=== PATIENT | male | born 2000 | race Caucasian/White ===

== ENCOUNTER 2019-04-02 16:27 | Emergency (ER) | payer SELFPAY ==
[2019-04-02] MEDS ORDERED: Sodium Chloride 0.9% 1,000 ML IV ONE ×2 (16:59→17:00)
[2019-04-02] MEDS ORDERED: Ondansetron 4 MG/2 ML SDV IVPUSH ONE (17:00)
[2019-04-02] MEDS ORDERED: Pantoprazole 80 MG in Sodium Chloride 0.9% 20 ML IVPUSH ONE (17:00)
--- NOTE | 2019-04-02 17:09 | EDM.PDOC ---
ED HPI GENERAL MEDICAL PROBLEM - General Chief Complaint: Abdominal Pain Stated Complaint: VOMITTING, DEHYDRATION Time Seen by Provider: 04/02/19 17:08 Source of Information: Reports: Patient - History of Present Illness INITIAL COMMENTS - FREE TEXT/NARRATIVE: HISTORY AND PHYSICAL: History of present illness: [pt presents with nausea/ vomiting since 4 am, general malaise and abdominal pain 410 with subjective fever, cough, patient states that he has vomited blood , no further vomiting here in the er patient is stable, abdominal pain resolved no current f/n/v/c/s/cp/sob/villasenor/d/palp ] Review of systems: As per history of present illness and below otherwise all systems reviewed and negative. Past medical history: As per history of present illness and as reviewed below otherwise noncontributory. Surgical history: As per history of present illness and as reviewed below otherwise noncontributory. Social history: No reported history of drug or alcohol abuse. Family history: As per history of present illness and as reviewed below otherwise noncontributory. Physical exam: HEENT: Atraumatic, normocephalic, pupils reactive, negative for conjunctival pallor or scleral icterus, mucous membranes moist, throat clear, neck supple, nontender, trachea midline. Lungs: Clear to auscultation, breath sounds equal bilaterally, chest nontender. Heart: S1S2, regular, negative for clicks, rubs, or JVD. Abdomen: Soft, nondistended, nontender. Negative for masses or hepatosplenomegaly. Negative for costovertebral tenderness. Pelvis: Stable nontender. Genitourinary: Deferred. Rectal: Deferred. Extremities: Atraumatic, negative for cords or calf pain. Neurovascular unremarkable. Neuro: Awake, alert, oriented. Cranial nerves II through XII unremarkable. Cerebellum unremarkable. Motor and sensory unremarkable throughout. Exam nonfocal. Diagnostics: [cbc, cmp, ua, lip chest 1 v abd/pelvis ct wo ] Therapeutics: []ns protonix zofran Impression: influenza a [cough abd pain-resolved vomiting-0resolved ] Definitive disposition and diagnosis as appropriate pending reevaluation and review of above. Abdominal Pain Score (Numeric/FACES): 8 - Related Data Allergies Allergy/AdvReac Type Severity Reaction Status Date / Time No Known Allergies Allergy Verified 04/02/19 16:45 Home Meds: Home Meds . [No Known Home Meds] 04/02/19 [History] Past Medical History Musculoskeletal History: Reports: Fracture - Infectious Disease History Infectious Disease History: Reports: None Social & Family History - Family History Family Medical History: Noncontributory - Tobacco Use Smoking Status *Q: Never Smoker Second Hand Smoke Exposure: No - Caffeine Use Caffeine Use: Reports: Coffee - Recreational Drug Use Recreational Drug Use: No ED ROS GENERAL - Review of Systems Review Of Systems: See Below ED EXAM, GENERAL - Physical Exam Exam: See Below Course - Vital Signs Last Recorded V/S: Last Vital Signs Temp 97.1 F 04/02/19 16:52 Pulse 102 H 04/02/19 16:52 Resp 20 04/02/19 16:52 BP 124/74 04/02/19 16:52 Pulse Ox 94 L 04/02/19 16:52 - Orders/Labs/Meds Orders: Active Orders 24 hr Category Date Time Status Abdomen Pelvis w Cont [CT] Stat Exams 04/02/19 17:00 Taken Labs: Laboratory Tests 04/02/19 04/02/19 Range/Units 17:02 17:02 WBC 5.19 (4.0-11.0) K/uL RBC 4.92 (4.50-5.90) M/uL Hgb 15.5 (13.0-17.0) g/dL Hct 44.7 (38.0-50.0) % MCV 90.9 (80.0-98.0) fL MCH 31.5 (27.0-32.0) pg MCHC 34.7 (31.0-37.0) g/dL RDW Std Deviation 43.0 (28.0-62.0) fl RDW Coeff of Minnie 13 (11.0-15.0) % Plt Count 251 (150-400) K/uL MPV 10.20 (7.40-12.00) fL Neut % (Auto) 73.5 (48.0-80.0) % Lymph % (Auto) 11.2 L (16.0-40.0) % Glasscock % (Auto) 13.9 (0.0-15.0) % Eos % (Auto) 1.0 (0.0-7.0) % Baso % (Auto) 0.4 (0.0-1.5) % Neut # (Auto) 3.8 (1.4-5.7) K/uL Lymph # (Auto) 0.6 (0.6-2.4) K/uL Glasscock # (Auto) 0.7 (0.0-0.8) K/uL Eos # (Auto) 0.1 (0.0-0.7) K/uL Baso # (Auto) 0.0 (0.0-0.1) K/uL Nucleated RBC % 0.0 /100WBC Nucleated RBCs # 0 K/uL Sodium 142 (136-148) mmol/L Potassium 3.8 (3.5-5.1) mmol/L Chloride 106 (98-107) mmol/L Carbon Dioxide 26.1 (21.0-32.0) mmol/L BUN 20 H (7.0-18.0) mg/dL Creatinine 1.3 (0.8-1.3) mg/dL Est Cr Clr Drug Dosing 99.49 mL/min Estimated GFR (MDRD) > 60.0 ml/min Glucose 104 (74-106) mg/dL Calcium 8.7 (8.5-10.1) mg/dL Total Bilirubin 0.7 (0.2-1.0) mg/dL AST 38 H (15-37) IU/L ALT 78 H (14-63) IU/L Alkaline Phosphatase 64 (46-116) U/L Total Protein 7.8 (6.4-8.2) g/dL Albumin 4.2 (3.4-5.0) g/dL Globulin 3.6 (2.6-4.0) g/dL Albumin/Globulin Ratio 1.2 (0.9-1.6) Lipase 232 (73-393) U/L Meds: Medications Discontinued Medications Generic Name Dose Route Start Last Admin Trade Name Freq PRN Reason Stop Dose Admin Sodium Chloride 1,000 mls @ 999 mls/hr 04/02/19 16:59 04/02/19 17:12 Normal Saline IV 04/02/19 17:59 999 mls/hr STAT ONE Administration Pantoprazole Sodium 80 mg/ 20 mls @ 420 mls/hr 04/02/19 17:00 04/02/19 17:13 Sodium Chloride IVPUSH 04/02/19 17:02 420 mls/hr ONETIME ONE Administration Sodium Chloride 1,000 mls @ 999 mls/hr 04/02/19 17:00 04/02/19 17:14 Normal Saline IV 04/02/19 18:00 Not Given STAT ONE Ondansetron HCl 8 mg 04/02/19 17:00 04/02/19 17:12 Zofran IVPUSH 04/02/19 17:01 8 mg ONETIME ONE Administration Departure - Departure Time of Disposition: 18:51 Disposition: Home, Self-Care 01 Condition: Good Clinical Impression: Influenza A, Vomiting - Discharge Information Referrals: PCP,None [Primary Care Provider] - Forms: ED Department Discharge Additional Instructions: Tamiflu Zofran Fluids nutrition Return if symptoms persist or worsen Follow-up with primary care in 2 [address] as [address] [facility] - Primary Care [address] [place] [id number] The following information is given to patients seen in the emergency department who are being discharged to home. This information is to outline your options for follow-up care. We provide all patients seen in our emergency department with a follow-up referral. The need for follow-up, as well as the timing and circumstances, are variable depending upon the specifics of your emergency department visit. If you don't have a primary care physician on staff, we will provide you with a referral. We always advise you to contact your personal physician following an emergency department visit to inform them of the circumstance of the visit and for follow-up with them and/or the need for any referrals to a consulting specialist. The emergency department will also refer you to a specialist when appropriate. This referral assures that you have the opportunity for follow-up care with a specialist. All of these measure are taken in an effort to provide you with optimal care, which includes your follow-up. Under all circumstances we always encourage you to contact your private physician who remains a resource for coordinating your care. When calling for follow-up care, please make the office aware that this follow-up is from your recent emergency room visit. If for any reason you are refused follow-up, please contact the [facility] emergency department at and asked to speak to the emergency department charge nurse. Sepsis Event Note - Evaluation Sepsis Screening Result: No Definite Risk - Focused Exam Vital Signs: Vital Signs Temp Pulse Resp BP Pulse Ox 04/02/19 16:52 97.1 F 102 H 20 124/74 94 L Date Exam was Performed: 04/02/19 Time Exam was Performed: 18:50 - My Orders Last 24 Hours: My Active Orders 04/02/19 17:00 Abdomen Pelvis w Cont [CT] Stat - Assessment/Plan Last 24 Hours: My Active Orders 04/02/19 17:00 Abdomen Pelvis w Cont [CT] Stat
[2019-04-02 17:43] LABS: BLOOD UREA NITROGEN,BUN 20 mg/dL (7.0-18.0); CARBON DIOXIDE,CO2 26.1 mmol/L (21.0-32.0); CHLORIDE,CL 106 mmol/L (98-107); GLUCOSE RANDOM 104 mg/dL (74-106); LIPASE 232 U/L (73-393); POTASSIUM,K 3.8 mmol/L (3.5-5.1); SODIUM,NA 142 mmol/L (136-148)
--- NOTE | 2019-04-02 18:24 | CR ---
INDICATION: Cough, nausea TECHNIQUE: Chest 1 view. COMPARISON: None FINDINGS: The heart is normal in size given AP technique. The pulmonary vasculature is within normal limits. The lungs are clear without focal consolidation, pleural effusion or pneumothorax. The bones are unremarkable. IMPRESSION: No acute process. Dictated by Ny Liu MD @ 04/02/2019 6:22:15 PM Dictated by: Ny Liu MD @ 04/02/2019 18:22:25 (Electronically Signed)
--- NOTE | 2019-04-02 18:52 | CT ---
INDICATION: Abdominal pain. Vomiting. Fever. TECHNIQUE: CT of the abdomen and pelvis performed after IV injection of 100 mL of Isovue-370. FINDINGS: Mild hazy opacity in the lung bases likely predominantly related atelectasis. Moderate diffuse fatty infiltration of liver. Clusters of small to slightly prominent right lower quadrant and right pelvic mesenteric lymph nodes are increased in number and measure up to 1.3 cm. These lymph nodes are likely inflammatory reactive in nature. The appendix is normal. Remainder negative. IMPRESSION: 1. No acute disease in abdomen or pelvis. 2. Clusters of increased number of small to mildly prominent right lower quadrant and pelvic mesentery are likely inflammatory or reactive in nature. Please note that all CT scans at this facility use dose modulation, iterative reconstruction, and/or weight-based dosing when appropriate to reduce radiation dose to as low as reasonably achievable. Dictated by Celestino Bai MD @ Apr 02 2019 6:50PM Signed by Dr. Celestino Bai @ Apr 02 2019 6:50PM
[2019-04-02] MEDS ORDERED: Iopamidol 755 Mg/ML 100 ML Bottle IVPUSH STA (19:00)
== END 2019-04-02 21:13 | disposition home or self-care (01) ==
LOC: MW.ED 16:27
DX: J10.1 Influenza due to other identified influenza virus with other respiratory manifestations (principal)
CPT/HCPCS: 36415; 71045; 74177; 80053; 83690; 85025; 87804; 96361; 96374; 96375; 99284; C9113; J2405; J7030; Q9967

== ENCOUNTER 2019-12-08 08:12 | Emergency (ER) | payer OTHER ==
--- NOTE | 2019-12-08 08:30 | EDM.PDOC ---
ED HPI GENERAL MEDICAL PROBLEM - General Chief Complaint: Back Pain or Injury Stated Complaint: BACK INJURY Time Seen by Provider: 12/08/19 08:17 - History of Present Illness INITIAL COMMENTS - FREE TEXT/NARRATIVE: History of present illness: Presents with midthoracic back pain that began this morning while he was walking across the street he says he felt the sudden onset of pain in the right mid back no radiation there was no lifting no injuries no falls no fever he feels like he just pulled a muscle and it spasming. The patient denies any flank pain no abdominal pain there is been no difficulty urinating no fevers no chills movement makes it worse being still makes it better he did not take any medications. Review of systems: As per history of present illness and below otherwise all systems reviewed and negative. Past medical history: As per history of present illness and as reviewed below otherwise noncontributory. Surgical history: As per history of present illness and as reviewed below otherwise noncont ributory. Social history: No reported history of drug or alcohol abuse. Family history: As per history of present illness and as reviewed below otherwise noncontributory. Physical exam: HEENT: Atraumatic, normocephalic, pupils reactive, negative for conjunctival pallor or scleral icterus, mucous membranes moist, throat clear, neck supple, nontender, trachea midline. Lungs: Clear to auscultation, breath sounds equal bilaterally, chest nontender. Heart: S1S2, regular, negative for clicks, rubs, or JVD. Abdomen: Soft, nondistended, nontender. Negative for masses or hepatosplenomegaly. Negative for costovertebral tenderness. Pelvis: Stable nontender. Genitourinary: Deferred. Rectal: Deferred. Extremities: Atraumatic, negative for cords or calf pain. Neurovascular unremarkable. Neuro: Awake, alert, oriented. Cranial nerves II through XII unremarkable. Cerebellum unremarkable. Motor and sensory unremarkable throughout. Exam nonfocal. There is no saddle anesthesia great toe strength 5 out of 5 Back: There is no midline tenderness throughout any level of the spine. He does have paraspinal spasm and tenderness at the level of T5 and 6. Diagnostics: [] Therapeutics: [] Impression: Thoracic strain Plan: Melony Majano work note discharged home follow-up with primary care [] Definitive disposition and diagnosis as appropriate pending reevaluation and review of above. - Related Data Allergies Allergy/AdvReac Type Severity Reaction Status Date / Time No Known Allergies Allergy Verified 12/08/19 08:32 Home Meds: Home Meds . [No Known Home Meds] 04/02/19 [History] Past Medical History Musculoskeletal History: Reports: Fracture - Infectious Disease History Infectious Disease History: Reports: None Social & Family History - Family History Family Medical History: Noncontributory - Caffeine Use Caffeine Use: Reports: Coffee ED ROS GENERAL - Review of Systems Review Of Systems: See Below ED EXAM, GENERAL - Physical Exam Exam: See Below Course - Vital Signs Last Recorded V/S: Last Vital Signs Temp 36.1 C 12/08/19 08:32 Pulse 70 12/08/19 08:32 Resp 16 12/08/19 08:32 BP 130/90 12/08/19 08:32 Pulse Ox 98 12/08/19 08:32 - Orders/Labs/Meds Orders: Active Orders 24 hr Category Date Time Status Cyclobenzaprine [Flexeril] Med 12/08/19 08:37 Once 10 mg PO ONETIME ONE Ibuprofen [Motrin] Med 12/08/19 08:37 Once 800 mg PO ONETIME ONE Departure - Departure Time of Disposition: 08:37 Disposition: Home, Self-Care 01 Condition: Good Clinical Impression: Back pain - Discharge Information *PRESCRIPTION DRUG MONITORING PROGRAM REVIEWED*: Not Applicable *COPY OF PRESCRIPTION DRUG MONITORING REPORT IN PATIENT VILLA: Not Applicable Instructions: Muscle Strain, [id number], Acute Back Pain, Adult Referrals: PCP,None [Primary Care Provider] - Forms: ED Department Discharge Additional Instructions: The following information is given to patients seen in the emergency department who are being discharged to home. This information is to outline your options for follow-up care. We provide all patients seen in our emergency department with a follow-up referral. The need for follow-up, as well as the timing and circumstances, are variable depending upon the specifics of your emergency department visit. If you don't have a primary care physician on staff, we will provide you with a referral. We always advise you to contact your personal physician following an emergency department visit to inform them of the circumstance of the visit and for follow-up with them and/or the need for any referrals to a consulting specialist. The emergency department will also refer you to a specialist when appropriate. This referral assures that you have the opportunity for follow-up care with a specialist. All of these measure are taken in an effort to provide you with optimal care, which includes your follow-up. Under all circumstances we always encourage you to contact your private physician who remains a resource for coordinating your care. When calling for follow-up care, please make the office aware that this follow-up is from your recent emergency room visit. If for any reason you are refused follow-up, please contact the [facility] Emergency Department at and asked to speak to the emergency department charge nurse. [facility] - Primary Care [address] [place] [id number] [facility] [address] [place] [id number] Sepsis Event Note (ED) - Focused Exam Vital Signs: Vital Signs Temp Pulse Resp BP Pulse Ox 12/08/19 08:32 36.1 C 70 16 130/90 98 - My Orders Last 24 Hours: My Active Orders 12/08/19 08:37 Cyclobenzaprine [Flexeril] 10 mg PO ONETIME ONE Ibuprofen [Motrin] 800 mg PO ONETIME ONE - Assessment/Plan Last 24 Hours: My Active Orders 12/08/19 08:37 Cyclobenzaprine [Flexeril] 10 mg PO ONETIME ONE Ibuprofen [Motrin] 800 mg PO ONETIME ONE
[2019-12-08] MEDS ORDERED: Cyclobenzaprine 10 MG Tab PO ONE (08:37)
[2019-12-08] MEDS ORDERED: Ibuprofen 800 MG Tab PO ONE (08:37)
== END 2019-12-08 08:59 | disposition home or self-care (01) ==
LOC: MW.ED 08:12
DX: M54.6 Pain in thoracic spine (principal)
CPT/HCPCS: 99283; A9270

== ENCOUNTER 2020-12-29 15:06 | Emergency (ER) | payer BC, OTHER ==
[2020-12-29] MEDS ORDERED: Sodium Chloride 0.9% 1,000 ML IV ONE (17:09)
[2020-12-29] MEDS ORDERED: Sodium Chloride 0.9% 2.5 ML Syringe FLUSH PRN (17:09)
[2020-12-29] MEDS ORDERED: Sodium Chloride 0.9% 10 ML Syringe FLUSH PRN (17:09)
[2020-12-29] MEDS ORDERED: Diphtheria,Pertussis(Acell),Tetanus Vaccine 0.5 ML Syringe IM ONE (17:09)
--- NOTE | 2020-12-29 17:10 | EDM.PDOC ---
ED HPI GENERAL MEDICAL PROBLEM - General Chief Complaint: Laceration Stated Complaint: RT HAND LACERATION/HEAD INJURY Time Seen by Provider: 12/29/20 16:51 Source of Information: Reports: Patient History Limitations: Reports: No Limitations - History of Present Illness INITIAL COMMENTS - FREE TEXT/NARRATIVE: HISTORY AND PHYSICAL: History of present illness: The patient is a 20-year-old male who presents to the emergency room for a right thenar eminence laceration. Patient was work after cutting his and and had a syncopal episode. Upon arriving to the emergency department waiting area the patient had another syncopal episode. The patient quickly regained consciousness and was able to answer questions appropriately. The patient states that he was handed tying a andres wire fence and he sliced his right hand palmar side. He states that he had never had difficulty with blood before but upon seeing the bleeding became nauseated and lightheaded and then fainted. Patient's states that he did strike his head when he was in the waiting room. Patient denies any fever, chills, headache, change in vision. Denies any chest pain, back pain, shortness of breath or cough. Denies any abdominal pain, nausea, vomiting, diarrhea, constipation or dysuria. Has not noted any blood in urine or stool. Patient has been eating and drinking appropriately. Review of systems: As per history of present illness and below otherwise all systems reviewed and negative. Past medical history: As per history of present illness and as reviewed below otherwise noncontributory. Surgical history: As per history of present illness and as reviewed below otherwise noncontributory. Social history: See social history for further information Family history: As per history of present illness and as reviewed below otherwise noncontributory. Physical exam: General: Well developed and well nourished. Alert and orientated x 3. Nontoxic in appearance and in no acute distress. Vital signs are stable and have been reviewed by me. Nursing notes were reviewed. HEENT: Atraumatic, normocephalic, pupils equal and reactive bilaterally, negative for conjunctival pallor or scleral icterus, mucous membranes moist, TMs normal bilaterally, throat clear, neck supple, nontender, trachea midline. No drooling or trismus noted. No meningeal signs. No hot potato voice noted. Lungs: Clear to auscultation bilaterally. No wheezes, rales, or rhonchi. Chest nontender. Normal work of breathing, no accessory muscles used. Heart: S1S2, regular rate and rhythm without overt murmur, gallops, or rubs. No JVD. No peripheral edema Abdomen: Soft, nondistended, nontender. Normoactive bowel sounds. Negative for masses or costovertebral tenderness. Skin: 3cm superficial scratch to right thenar eminence laceration. Warm & dry. No lesions or rashes noted. Hematologic: No petechiae or purpra. Mucosa appropriate color and normal nail bed color and refill. Extremities: Atraumatic, moves all extremities per self without difficulty or deficits, negative for cords or calf pain. Neurovascular unremarkable. Neuro: Awake, alert, oriented. Cranial nerves II through XII unremarkable. Cerebellum unremarkable. Motor and sensory unremarkable throughout. Exam nonfocal. Psychiatric: Mood and affect are appropriate. Normal thought process. Answering questions appropriately. Notes: *This patient was seen and evaluated during the 2019 SARS-CoV-2 novel coronavirus pandemic period. Community viral transmission is ongoing at time of this encounter and the emergency department is operating under pandemic response procedures. As stated above the patient is a 20-year-old who presented to the emergency department after cutting his right hand when putting up a andres wire fence. The patient became lightheaded upon seeing the blood and had a syncopal episode in the emergency room waiting room. The patient is alert and awake now and his neuro exam was normal. As he had struck his head I have ordered a head CT. I will obtain blood work as the patient is works outside and it could be a little dehydrated. We obtained an EKG. I have ordered IV fluids for the patient. The patient's laceration is very superficial and requires only Dermabond with a Steri-Strip. The patient does require a tetanus booster as he has not had one for over 5 years. The patient's head CT IMPRESSION: 1. No evidence of acute infarction, intracranial hemorrhage, or mass-effect seen. The CBC is unremarkable. The CMP is unremarkable. The patient heart rate is 58-64. He was ambulated around the department with no signs of syncope or dizziness. The patient is stating that he feels back to his baseline. I will discharge the patient home. I have talked with the patient about today's findings, in addition to providing specific details for plan of care. Reassessment at the time of disposition demonstrates that the patient is in no acute distress. The patient is stable for discharge, counseling was provided and we discussed in great detail signs and symptoms that would prompt them to return to the Emergency Department. Medication, follow up and supportive care measures were reviewed and discussed. Voices understanding and is agreeable to plan of care. Denies any further questions or concerns at this time. Diagnostics: CBC, CMP, AG, head CT Therapeutics: IV fluids, tetanus, Dermabond Impression: Syncopal episode, superficial laceration Plan: 1. You were evaluated today on an emergent basis. Your complaints of a of right hand laceration and 2 episodes of fainting were evaluated with examination and you were found to only need Dermabond for your hand. Keep the area dry do not submerge your hands in water the glue comes off. Cover the area when working. If the glue does come off you can use normal bandage to protect the area. Your blood work was normal. Your head CT was normal. Your neuro exam was also normal. Your fainting episodes most likely came from the side of the blood. Y ou continue to feel lightheaded please return to the emergency department for further work-up. 2. You can alternate Tylenol and ibuprofen as needed for pain and fever management. 3. We encourage you to follow up with your primary care provider and/or recommended specialist in the next few days for re-evaluation and further care/management. 4. If your symptoms should worsen, new symptoms develop or any of the signs and symptoms we discussed should arise please return to the emergency room or call 911 (if needed). Definitive disposition and diagnosis as appropriate pending reevaluation and re view of above. headache/hand Pain Score (Numeric/FACES): 1 - Related Data Allergies Allergy/AdvReac Type Severity Reaction Status Date / Time No Known Allergies Allergy Verified 12/29/20 16:19 Home Meds: Home Meds . [No Known Home Meds] 04/02/19 [History] Past Medical History - Past Health History Medical/Surgical History: Denies Medical/Surgical History Musculoskeletal History: Reports: Fracture - Infectious Disease History Infectious Disease History: Reports: None - Past Surgical History Other Musculoskeletal Surgeries/Procedures:: Pt states he had a toe surgery Social & Family History - Family History Family Medical History: No Pertinent Family History - Tobacco Use Tobacco Use Status *Q: Never Tobacco User - Caffeine Use Caffeine Use: Reports: Energy Drinks, Other Other Caffeine Use: preworkout - Recreational Drug Use Recreational Drug Use: No ED ROS GENERAL - Review of Systems Review Of Systems: Comprehensive ROS is negative, except as noted in HPI. ED EXAM, SKIN/RASH Exam: See Below (See dictation) Course - Vital Signs Last Recorded V/S: Last Vital Signs Temp 97.0 F 12/29/20 17:49 Pulse 58 L 12/29/20 18:47 Resp 16 12/29/20 18:47 BP 100/58 L 12/29/20 18:47 Pulse Ox 98 12/29/20 18:47 - Orders/Labs/Meds Orders: Active Orders 24 hr Category Date Time Status Saline Lock Insert [OM.PC] Stat Oth 12/29/20 17:08 Ordered Labs: Laboratory Tests 12/29/20 12/29/20 Range/Units 17:53 17:53 WBC 6.43 (4.0-11.0) K/uL RBC 4.34 L (4.50-5.90) M/uL Hgb 13.8 (13.0-17.0) g/dL Hct 39.4 (38.0-50.0) % MCV 90.8 (80.0-98.0) fL MCH 31.8 (27.0-32.0) pg MCHC 35.0 (31.0-37.0) g/dL RDW Std Deviation 43.4 (28.0-62.0) fl RDW Coeff of Minnie 13 (11.0-15.0) % Plt Count 249 (150-400) K/uL MPV 10.00 (7.40-12.00) fL Neut % (Auto) 63.4 (48.0-80.0) % Lymph % (Auto) 25.5 (16.0-40.0) % Sandoval % (Auto) 7.8 (0.0-15.0) % Eos % (Auto) 2.8 (0.0-7.0) % Baso % (Auto) 0.5 (0.0-1.5) % Neut # (Auto) 4.1 (1.4-5.7) K/uL Lymph # (Auto) 1.6 (0.6-2.4) K/uL Sandoval # (Auto) 0.5 (0.0-0.8) K/uL Eos # (Auto) 0.2 (0.0-0.7) K/uL Baso # (Auto) 0.0 (0.0-0.1) K/uL Nucleated RBC % 0.0 /100WBC Nucleated RBCs # 0 K/uL Sodium 140 (136-148) mmol/L Potassium 4.2 (3.5-5.1) mmol/L Chloride 106 (98-107) mmol/L Carbon Dioxide 27.1 (21.0-32.0) mmol/L BUN 28 H (7.0-18.0) mg/dL Creatinine 1.0 (0.8-1.3) mg/dL Est Cr Clr Drug Dosing 127.18 mL/min Estimated GFR (MDRD) > 60.0 ml/min Glucose 94 (74-106) mg/dL Calcium 8.0 L (8.5-10.1) mg/dL Total Bilirubin 0.3 (0.2-1.0) mg/dL AST 28 (15-37) IU/L ALT 54 (14-63) IU/L Alkaline Phosphatase 64 (46-116) U/L Total Protein 6.7 (6.4-8.2) g/dL Albumin 3.8 (3.4-5.0) g/dL Globulin 2.9 (2.6-4.0) g/dL Albumin/Globulin Ratio 1.3 (0.9-1.6) Meds: Medications Discontinued Medications Generic Name Dose Route Start Last Admin Trade Name Narcisoq PRN Reason Stop Dose Admin Diphtheria/Tetanus/Acell Pertussis 0.5 ml 12/29/20 17:09 12/29/20 17:32 Diphtheria,Pertussis(Acell),Tetanus Vaccine 0.5 Ml Syringe IM 12/29/20 17:10 0.5 ml .ONCE ONE Administration Sodium Chloride 1,000 mls @ 999 mls/hr 12/29/20 17:09 12/29/20 17:09 Normal Saline IV 12/29/20 18:09 999 mls/hr .BOLUS ONE Administration Octyl Cyanoacrylate 1 applic 12/29/20 17:20 12/29/20 17:32 Octyl 2-Cyanoacrylate 1 Tube TOP 12/29/20 17:21 1 applic ONETIME ONE Administration Sodium Chloride 10 ml 12/29/20 17:12/29/20 17:22 Sodium Chloride 0.9% 10 Ml Syringe FLUSH 10 ml ASDIRECTED PRN Administration Keep Vein Open Sodium Chloride 2.5 ml 12/29/20 17:12/29/20 17:22 Sodium Chloride 0.9% 2.5 Ml Syringe FLUSH 2.5 ml ASDIRECTED PRN Administration Keep Vein Open Departure - Departure Time of Disposition: 18:43 Disposition: Home, Self-Care 01 Clinical Impression: Laceration Syncope Qualifiers: Syncope type: vasovagal syncope Qualified Code(s): R55 - Syncope and collapse - Discharge Information *PRESCRIPTION DRUG MONITORING PROGRAM REVIEWED*: Not Applicable *COPY OF PRESCRIPTION DRUG MONITORING REPORT IN PATIENT VILLA: Not Applicable Instructions: Laceration Care, Adult, Sutures, Misha, or Adhesive Wound Closure, [id number] Referrals: PCP,None [Primary Care Provider] - Forms: ED Department Discharge Additional Instructions: The following information is given to patients seen in the emergency department who are being discharged to home. This information is to outline your options for follow-up care. We provide all patients seen in our emergency department with a follow-up referral. The need for follow-up, as well as the timing and circumstances, are variable depending upon the specifics of your emergency department visit. If you don't have a primary care physician on staff, we will provide you with a referral. We always advise you to contact your personal physician following an emergency department visit to inform them of the circumstance of the visit and for follow-up with them and/or the need for any referrals to a consulting specialist. The emergency department will also refer you to a specialist when appropriate. This referral assures that you have the opportunity for follow-up care with a specialist. All of these measure are taken in an effort to provide you with optimal care, which includes your follow-up. Under all circumstances we always encourage you to contact your private physician who remains a resource for coordinating your care. When calling for follow-up care, please make the office aware that this follow-up is from your recent emergency room visit. If for any reason you are refused follow-up, please contact the [facility] Emergency Department at and asked to speak to the emergency department charge nurse. Thad James[facility] [address] [place] [address] [facility] [address] [place] [address] Plan: 1. You were evaluated today on an emergent basis. Your complaints of a of right hand laceration and 2 episodes of fainting were evaluated with examination and you were found to only need Dermabond for your hand. Keep the area dry do not submerge your hands in water the glue comes off. Cover the area when working. If the glue does come off you can use normal bandage to protect the area. Your blood work was normal. Your head CT was normal. Your neuro exam was also normal. Your fainting episodes most likely came from the side of the blood. You continue to feel lightheaded please return to the emergency department for further work-up. 2. You can alternate Tylenol and ibuprofen as needed for pain and fever management. 3. We encourage you to follow up with your primary care provider and/or recommended specialist in the next few days for re-evaluation and further care/management. 4. If your symptoms should worsen, new symptoms develop or any of the signs and symptoms we discussed should arise please return to the emergency room or call 911 (if needed). Sepsis Event Note (ED) - Focused Exam Vital Signs: Vital Signs Temp Pulse Resp BP Pulse Ox 12/29/20 18:47 58 L 16 100/58 L 98 12/29/20 17:49 97.0 F 53 L 16 126/51 L 97 12/29/20 16:20 97.2 F 51 L 18 115/47 L 97 - My Orders Last 24 Hours: My Active Orders 12/29/20 17:08 Saline Lock Insert [OM.PC] Stat - Assessment/Plan Last 24 Hours: My Active Orders 12/29/20 17:08 Saline Lock Insert [OM.PC] Stat
[2020-12-29] MEDS ORDERED: Octyl 2-Cyanoacrylate 1 Tube TOP ONE (17:20)
--- NOTE | 2020-12-29 18:11 | CT ---
INDICATION: Syncope resulting in fall striking head TECHNIQUE: CT Head without i.v. contrast. Coronal and sagittal reformats were obtained. COMPARISON: None FINDINGS: CSF space: The ventricles are normal for age. Brain: No evidence of mass, acute infarction or hemorrhage is seen. No mass-effect or midline shift is seen. The brain parenchyma is otherwise normal in appearance with preservation of the wright-white matter junction. Calvarium: The visualized paranasal sinuses are well aerated. The mastoid air cells are clear. The visualized orbits are grossly unremarkable. The calvarium is unremarkable in appearance with no fractures identified. IMPRESSION: 1. No evidence of acute infarction, intracranial hemorrhage, or mass-effect seen. Please note that all CT scans at this facility use dose modulation, iterative reconstruction, and/or weight-based dosing when appropriate to reduce radiation dose to as low as reasonably achievable. Dictated by: Franky Black MD @ 12/29/2020 18:09:34 (Electronically Signed)
[2020-12-29 18:19] LABS: BLOOD UREA NITROGEN,BUN 28 mg/dL (7.0-18.0); CARBON DIOXIDE,CO2 27.1 mmol/L (21.0-32.0); CHLORIDE,CL 106 mmol/L (98-107); GLUCOSE RANDOM 94 mg/dL (74-106); POTASSIUM,K 4.2 mmol/L (3.5-5.1); SODIUM,NA 140 mmol/L (136-148)
--- NOTE | 2020-12-29 19:42 | PCM.EKG ---
#1 Interpretation EKG Date: 12/29/20 Time: 16:39 Rhythm: NSR Rate (Beats/Min): 47 [place]: Normal P-Wave: Present QRS: Normal ST-T: Normal QT: Normal Comparison: NA - No Prior EKG EKG Interpretation Comments: Sinus Bradycardia
== END 2020-12-29 18:49 | disposition home or self-care (01) ==
LOC: MW.ED 15:06
DX: S61.411A Laceration without foreign body of right hand, initial encounter (principal); R55 Syncope and collapse; Z23 Encounter for immunization; W26.8XXA Contact with other sharp object(s), not elsewhere classified, initial encounter; Y92.89 Other specified places as the place of occurrence of the external cause; Y99.0 Civilian activity done for income or pay
CPT/HCPCS: 12002; 36415; 70450; 80053; 85025; 90471; 90715; 93005; 99284; A9270; J7030

== ENCOUNTER 2022-08-17 11:13 | Emergency (ER) | payer BC ==
[2022-08-17] MEDS ORDERED: Tetracaine HCl/PF 0.5% 4 ML Bottle EYELF STA (11:50)
[2022-08-17] MEDS ORDERED: Ciprofloxacin 0.3% Ophth Soln 2.5 ML Bottle EYELF STA (12:36)
== END 2022-08-17 13:11 | disposition home or self-care (01) ==
LOC: MW.ED 11:13
DX: S05.02XA Injury of conjunctiva and corneal abrasion without foreign body, left eye, initial encounter (principal); W22.09XA Striking against other stationary object, initial encounter
CPT/HCPCS: 99283; J3490

== ENCOUNTER 2022-12-19 19:05 | Emergency (ER) | payer BC | END 2022-12-19 19:21 | disposition left against medical advice (07) | LOC: MW.ED 19:05 | DX: Z53.21 Procedure and treatment not carried out due to patient leaving prior to being seen by health care provider (principal) ==

== ENCOUNTER 2024-01-10 07:21 | Emergency (ER) | payer SELFPAY ==
[2024-01-10] MEDS: Lidocaine 4% 1 each Patch TOP PRN (08:07)
== END 2024-01-10 08:09 | disposition home or self-care (01) ==
LOC: MW.ED 07:21
DX: S46.912A Strain of unspecified muscle, fascia and tendon at shoulder and upper arm level, left arm, initial encounter (principal); Z75.8 Other problems related to medical facilities and other health care; X58.XXXA Exposure to other specified factors, initial encounter
CPT/HCPCS: 99283; A9270

== ENCOUNTER 2025-03-06 19:49 | Emergency (ER) | payer BC | END 2025-03-06 22:04 | disposition left against medical advice (07) | LOC: MW.ED 19:49 | DX: M25.511 Pain in right shoulder (principal); F17.200 Nicotine dependence, unspecified, uncomplicated; Z75.3 Unavailability and inaccessibility of health-care facilities | CPT/HCPCS: 73000; 73030; 99283; A9270 ==